=== PATIENT | female | born 1980 | race Caucasian/White ===

== ENCOUNTER 2018-08-04 17:41 | Emergency (ER) | payer MEDICAID ==
[2018-08-04] MEDS ORDERED: Sodium Chloride 0.9% 10 ML Syringe FLUSH PRN (18:16)
[2018-08-04] MEDS ORDERED: Sodium Chloride 0.9% 1,000 ML IV ONE (18:17)
[2018-08-04] MEDS ORDERED: LORazepam 2 MG/ML SDV IVPUSH ONE (18:17)
--- NOTE | 2018-08-04 18:33 | EDM.PDOC ---
ED HPI GENERAL MEDICAL PROBLEM - General Chief Complaint: General Stated Complaint: ANXIETY Time Seen by Provider: 08/04/18 18:15 Source of Information: Reports: Patient, Family History Limitations: Reports: No Limitations - History of Present Illness INITIAL COMMENTS - FREE TEXT/NARRATIVE: Kaylin is a 37 year old female, hx of anxiety, presents to the ED today with c /o left sided chest pain with chest tightness and left shoulder, upper arm burning on and off all week, worse today which created a panic attack for patient. Patient took her Klonopin prior to arrival here which helped her anxiety somewhat. Patient took Naproxen for her chest pain without relief. No fever/cough/URI symptoms, dad with cardiac history. Patient does smoke 1/2-1 pack per day. Patient does have Implanon. Patient endorses mild sob, denies any hx of blood clot. Onset: Gradual Left Chest Pain Score (Numeric/FACES): 9 - Related Data Allergies Allergy/AdvReac Type Severity Reaction Status Date / Time amoxicillin Allergy Anaphylactic Verified 08/04/18 17:51 Shock Home Meds: Home Meds Amitriptyline [Elavil] 5 mg PO DAILY 08/04/18 [History] ClonazePAM [KlonoPIN] 0.5 mg PO ASDIRECTED PRN 08/04/18 [History] Sertraline [Zoloft] 50 mg PO BEDTIME 08/04/18 [History] traZODone HCl [Trazodone HCl] 50 mg PO BEDTIME 08/04/18 [History] Past Medical History HEENT History: Reports: Impaired Vision Gastrointestinal History: Reports: Chronic Diarrhea, Other (See Below) Other Gastrointestinal History: lower instestinal pain Musculoskeletal History: Reports: Back Pain, Chronic Neurological History: Reports: Concussion, Migraines Psychiatric History: Reports: Anxiety, Depression, Panic Attack, PTSD - Past Surgical History Head Surgeries/Procedures: Reports: None HEENT Surgical History: Reports: Adenoidectomy GI Surgical History: Reports: None Neurological Surgical History: Reports: None Musculoskeletal Surgical History: Reports: Other (See Below) Other Musculoskeletal Surgeries/Procedures:: right second toe Dermatological Surgical History: Reports: None Social & Family History - Tobacco Use Smoking Status *Q: Current Every Day Smoker Years of Tobacco use: 15 Packs/Tins Daily: 1 Used Tobacco, but Quit: No Second Hand Smoke Exposure: No - Caffeine Use Caffeine Use: Reports: Soda - Recreational Drug Use Recreational Drug Use: No ED ROS GENERAL - Review of Systems Review Of Systems: ROS reveals no pertinent complaints other than HPI. ED EXAM, GENERAL - Physical Exam Exam: See Below Exam Limited By: No Limitations General Appearance: Alert, WD/WN, Anxious Eye Exam: Bilateral Eye: EOMI Nose: Normal Inspection Throat/Mouth: Normal Oropharynx Head: Atraumatic Neck: Normal Inspection Respiratory/Chest: No Respiratory Distress, Lungs Clear, Chest Non-Tender. No: Respiratory Distress, Accessory Muscle Use Cardiovascular: Normal Peripheral Pulses, Regular Rate, Rhythm, No Murmur GI/Abdominal: Normal Bowel Sounds, Soft, Non-Tender Back Exam: Normal Inspection Extremities: Normal Inspection, Normal Range of Motion Neurological: Alert, Oriented Psychiatric: Anxious Skin Exam: Warm, Dry EKG INTERPRETATION EKG Date: 08/04/18 Time: 19:22 Rhythm: NSR [place]: Normal P-Wave: Present QRS: Normal ST-T: Normal QT: Normal EKG Interpretation Comments: No Acute Ischemic Findings Course - Vital Signs Last Recorded V/S: Last Vital Signs Temp 36.4 C 08/04/18 17:56 Pulse 82 08/04/18 17:56 Resp 18 08/04/18 17:56 BP 110/72 08/04/18 17:56 Pulse Ox 92 L 08/04/18 17:56 Kaylin is a 37 year old female, hx of anxiety , presents to the ED today with 1 week hx of intermittent chest pain/sob/left upper arm numbness. Please refer to HPI and focused exam. Patient is anxious appearing on exam, VSS. Likely symptoms anxiety related but will rule out cardiac etiology and obtain d dimer for PE as patient is a smoker and on control. Blood work returns unremarkable, troponin is undedectable and d dimer is negative. CBC and Basic panel WNL. EKG with NSR, no ectopy or acute ischemic findings. CXR negative for any acute cardiopulmonary abnormality. Patient feeling better here after ativan, reassured, would like patient to follow up with PCP next week. recommend scheduled nsaids for the next few days. Reasons to return to the ED discussed patient agreeable and discharged in stable condition. - Orders/Labs/Meds Orders: Active Orders 24 hr Category Date Time Status EKG Documentation Completion [RC] ASDIRECTED Care 08/04/18 19:00 Active Peripheral IV Care [RC] . DIRECTED Care 08/04/18 18:16 Active Sodium Chloride 0.9% [Saline Flush] Med 08/04/18 18:16 Active 10 ml FLUSH ASDIRECTED PRN Peripheral IV Insertion Adult [OM.PC] Routine Oth 08/04/18 18:16 Ordered EKG 12 Lead [EK] Routine Ther 08/04/18 19:00 Ordered Medication Orders Sodium Chloride (Saline Flush) 10 ml FLUSH ASDIRECTED PRN PRN Reason: Keep Vein Open Last Admin: 08/04/18 18:33 Dose: 10 ml Labs: Laboratory Tests 08/04/18 08/04/18 08/04/18 Range/Units 18:30 18:30 18:30 WBC 8.9 (4.5-11.0) K/uL RBC 4.63 (3.30-5.50) M/uL Hgb 14.2 (12.0-15.0) g/dL Hct 42.6 (36.0-48.0) % MCV 92 (80-98) fL MCH 31 (27-31) pg MCHC 33 (32-36) % Plt Count 263 (150-400) K/uL Neut % (Auto) 60 (36-66) % Lymph % (Auto) 29 (24-44) % [place] % (Auto) 8 H (2-6) % Eos % (Auto) 3 (2-4) % Baso % (Auto) 0 (0-1) % D-Dimer, Quantitative < 100 (0.0-400.0) ng/mL Sodium 141 (140-148) mmol/L Potassium 4.1 (3.6-5.2) mmol/L Chloride 106 (100-108) mmol/L Carbon Dioxide 27 (21-32) mmol/L Anion Gap 7.8 (5.0-14.0) mmol/L BUN 9 (7-18) mg/dL Creatinine 0.9 (0.6-1.0) mg/dL Est Cr Clr Drug Dosing 70.12 mL/min Estimated GFR (MDRD) > 60 (>60) Glucose 83 (74-106) mg/dL Calcium 8.7 (8.5-10.1) mg/dL Troponin I < 0.017 (0.000-0.056) ng/mL Meds: Medications Generic Name Dose Route Start Last Admin Trade Name Jahaira PRN Reason Stop Dose Admin Sodium Chloride 10 ml 08/04/18 18:16 08/04/18 18:33 Saline Flush FLUSH 10 ml ASDIRECTED PRN Administration Keep Vein Open Discontinued Medications Generic Name Dose Route Start Last Admin Trade Name Jahaira PRN Reason Stop Dose Admin Sodium Chloride 1,000 mls @ 999 mls/hr 08/04/18 18:17 08/04/18 18:33 Normal Saline IV 08/04/18 19:17 999 mls/hr .BOLUS ONE Administration Lorazepam 1 mg 08/04/18 18:17 08/04/18 18:37 Ativan IVPUSH 08/04/18 18:18 1 mg ONETIME ONE Administration Departure - Departure Time of Disposition: 20:00 Disposition: Home, Self-Care 01 Condition: Good Clinical Impression: Anxiety, Atypical chest pain - Discharge Information Instructions: Chest Wall Pain, [id number]-[id number], Panic Attack Referrals: PCP,None [Primary Care Provider] - Forms: ED Department Discharge Additional Instructions: I would recommend taking 600 mg ibuprofen every 6 hours for the next 3-4 days to see if this helps with your pain. Klonopin as previously prescribed. Follow up with primary care provider next week. - My Orders Last 24 Hours: My Active Orders 08/04/18 18:16 Peripheral IV Care [RC] . DIRECTED Sodium Chloride 0.9% [Saline Flush] 10 ml FLUSH ASDIRECTED PRN Peripheral IV Insertion Adult [OM.PC] Routine 08/04/18 19:00 EKG Documentation Completion [RC] ASDIRECTED EKG 12 Lead [EK] Routine - Assessment/Plan Last 24 Hours: My Active Orders 08/04/18 18:16 Peripheral IV Care [RC] . DIRECTED Sodium Chloride 0.9% [Saline Flush] 10 ml FLUSH ASDIRECTED PRN Peripheral IV Insertion Adult [OM.PC] Routine 08/04/18 19:00 EKG Documentation Completion [RC] ASDIRECTED EKG 12 Lead [EK] Routine
--- NOTE | 2018-08-04 19:17 | CRLCR ---
INDICATION: Left-sided chest pain TECHNIQUE: Chest 2 views. COMPARISON: None FINDINGS: Cardiovascular and mediastinum: Heart size and vasculature are normal in caliber and appearance. Mediastinum is within normal limits. Lungs and pleural spaces: Lungs are clear. No sign of infiltrate or mass. No sign of pleural effusion. No pneumothorax. Bones and soft tissues: No significant findings. IMPRESSION: No sign of acute disease. Dictated by Lyric Sheth MD @ Aug 04 2018 7:15PM Signed by Dr. Lyric Sheth @ Aug 04 2018 7:16PM
== END 2018-08-04 19:41 | disposition home or self-care (01) ==
LOC: JP.ED 17:41
DX: F41.9 Anxiety disorder, unspecified (principal); R07.89 Other chest pain; F32.9 Major depressive disorder, single episode, unspecified; F17.210 Nicotine dependence, cigarettes, uncomplicated; Z79.899 Other long term (current) drug therapy
CPT/HCPCS: 36415; 71046; 80048; 84484; 85025; 85379; 93005; 96361; 96374; 99284; J2060; J7030